=== PATIENT | male | born 1985 | race African-American/Black ===

== ENCOUNTER 2018-12-29 16:29 | Inpatient (IN) | payer BC ==
--- NOTE | 2018-12-29 16:59 | ED ---
Psych HPI - General Chief Complaint: Psychiatric Symptoms Stated Complaint: Mental Health Time Seen by Provider: 12/29/18 16:58 Source: patient, RN notes reviewed, old records reviewed Mode of arrival: ambulatory - History of Present Illness Initial Comments: This is a 33-year-old male presented for psychiatric illness, denies drug rel call abuse. Denies thoughts of suicide or homicide, patient does present for evaluation regarding hallucinations delusions and hearing voices. MD Complaint: suicidal ideation, feels depressed, altered mental status -: unknown Associated Psychiatric Symptoms: racing thoughts, auditory hallucinations, visual hallucinations History of same: Yes Quality: constant, getting worse Improves With: none Worsens With: none Context: not taking psychiatric medications Associated Symptoms: denies other symptoms If Self Harm: admits thoughts of self harm - Related Data Home Medications Medication Instructions Recorded Confirmed No Known Home Medications 12/29/18 12/29/18 Allergies Allergy/AdvReac Type Severity Reaction Status Date / Time Penicillins Allergy Anaphylaxis Verified 12/29/18 17:58 kiwi Allergy Unknown Uncoded 12/29/18 16:35 Review of Systems ROS Statement: Those systems with pertinent positive or pertinent negative responses have been documented in the HPI. ROS Other: All systems not noted in ROS Statement are negative. Past Medical History Past Medical History: Asthma History of Any Multi-Drug Resistant Organisms: None Reported Past Surgical History: Adenoidectomy Past Psychological History: No Psychological Hx Reported Smoking Status: Current every day smoker Past Alcohol Use History: Occasional Past Drug Use History: None Reported General Exam Limitations: no limitations General appearance: alert, in no apparent distress Head exam: Present: atraumatic, normocephalic, normal inspection Eye exam: Present: normal appearance, PERRL, EOMI. Absent: scleral icterus, conjunctival injection, periorbital swelling ENT exam: Present: normal exam, mucous membranes moist Neck exam: Present: normal inspection. Absent: tenderness, meningismus, lymphadenopathy Respiratory exam: Present: normal lung sounds bilaterally. Absent: respiratory distress, wheezes, rales, rhonchi, stridor Cardiovascular Exam: Present: regular rate, normal rhythm, normal heart sounds. Absent: systolic murmur, diastolic murmur, rubs, gallop, clicks GI/Abdominal exam: Present: soft, normal bowel sounds. Absent: distended, tenderness, guarding, rebound, rigid Extremities exam: Present: normal inspection, full ROM, normal capillary refill. Absent: tenderness, pedal edema, joint swelling, calf tenderness Back exam: Present: normal inspection Neurological exam: Present: alert, oriented X3, CN II-XII intact Psychiatric exam: Present: normal affect, normal mood Skin exam: Present: warm, dry, intact, normal color. Absent: rash Course Vital Signs 12/29/18 12/29/18 12/29/18 16:33 21:19 21:20 Temperature 98.7 F Pulse Rate 60 Respiratory 18 Rate Blood Pressure 147/92 Blood Pressure 141/100 133/91 [Left Arm Sitting] O2 Sat by Pulse 99 Oximetry Medical Decision Making - Medical Decision Making 33 male who was seen eval by psychiatry will admit for psychiatric evaluation and treatment Disposition Clinical Impression: Psychosis, Acute psychosis Disposition: TRANSFER TO PSYCH HOSP/UNIT Condition: Fair Is patient prescribed a controlled substance at d/c from ED?: No Referrals: None,Stated [Primary Care Provider] - 1-2 days
[2018-12-29] MEDS ORDERED: MAG HYDROX/AL HYDROX/SIMETH 30 ML CUP PO PRN (22:22)
[2018-12-29] MEDS ORDERED: ACETAMINOPHEN TAB 325 MG TAB PO PRN (22:22)
[2018-12-29] MEDS ORDERED: MAGNESIUM HYDROXIDE 2,400 MG/10 ML CUP PO PRN (22:22)
[2018-12-29] MEDS ORDERED: ZIPRASIDONE 20 MG VIAL IM PRN (22:22)
[2018-12-29] MEDS ORDERED: LORazepam 2 MG/ML INJ IM PRN (22:26)
[2018-12-29 23:21] LABS: Appearance,Urine Clear (Clear); Bilirubin,Urine Negative (Negative); Blood,Urine Negative (Negative); Color,Urine Yellow; Glucose,Urine (UA) Negative (Negative); Ketones,Urine Trace (Negative); Leukocyte Esterase,Urine Negative (Negative); Nitrite,Urine Negative (Negative); PH, Urine 5.5 (5.0-8.0); Protein,Urine Negative (Negative); Specific Gravity,Urine 1.014 (1.001-1.035); Urobilinogen,Urine <2.0 mg/dL (<2.0)
[2018-12-29 23:54] LABS: Amphetamine Screen,Urine Not Detected (NotDetected); Barbiturate Screen,Urine Not Detected (NotDetected); Benzodiazepines Screen,Urine Not Detected (NotDetected); Cocaine Screen,Urine Not Detected (NotDetected); Methadone Screen, Urine Not Detected (NotDetected); Opiate Screen,Urine Not Detected (NotDetected); Oxycodone Screen, Urine Not Detected (NotDetected); Phencyclidine Screen,Urine Not Detected (NotDetected); Tricyclic Antidepressant,Urine Not Detected (NotDetected); Urn Cannabinoid Scrn Detected (NotDetected)
[2018-12-30] MEDS: NICOTINE 14MG/24HR PATCH TRANSDERM SCH ×2 (01:09→09:41)
[2018-12-30] MEDS ORDERED: LORazepam 2 MG/ML INJ IM STA (02:25)
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
[2018-12-30 09:04] LABS: Glucose,Whole Blood 78 mg/dL (75-99)
[2018-12-30 09:12] LABS: Basophils % (A) 0 %; Eosinophils # (A) 0.1 k/uL (0-0.7); Eosinophils % (A) 1 %; HCT 51.1 % (39.0-53.0); HGB 16.3 gm/dL (13.0-17.5); Lymphocytes # (A) 2.2 k/uL (1.0-4.8); Lymphocytes % (A) 31 %; MCH 26.1 pg (25.0-35.0); MCHC 31.9 g/dL (31.0-37.0); MCV 81.8 fL (80.0-100.0); Mean Platelet Volume 6.5; Monocytes # (A) 0.5 k/uL (0-1.0); Monocytes % (A) 7 %; Neutrophils # (A) 4.2 k/uL (1.3-7.7); Neutrophils % (A) 59 %; Platelet Count 230 k/uL (150-450); RBC 6.24 m/uL (4.30-5.90); RDW 13.2 % (11.5-15.5); WBC 7.2 k/uL (3.8-10.6)
[2018-12-30 09:16] LABS: INR 1.1 (<1.2); Prothrombin Time 11.2 sec (9.0-12.0)
[2018-12-30 09:42] LABS: Albumin 4.5 g/dL (3.5-5.0); Bilirubin, Delta 0.2 mg/dL (0.0-0.2); Bilirubin,Unconjugated 0.8 mg/dL (0.0-1.1); Calcium 9.1 mg/dL (8.4-10.2); Magnesium 2.4 mg/dL (1.6-2.3); Potassium 4.8 mmol/L (3.5-5.1); Total Protein 7.8 g/dL (6.3-8.2)
[2018-12-30] MEDS ORDERED: chlorproMAZINE 25 MG/ML 2 ML AMP IM PRN (10:01)
[2018-12-30] MEDS ORDERED: diphenhydrAMINE 50 MG/ML 1 ML VIAL IM PRN (10:03)
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
[2018-12-30 20:52] LABS: Hemoglobin A1C 5.8 % (4.0-6.0)
[2018-12-31] MEDS: LORazepam 1 MG TAB PO PRN (06:59)
[2018-12-31 07:01] VITALS: BP 140/69; PULSE 131; RESP 18; TEMP 97.9
[2018-12-31] MEDS: NICOTINE 14MG/24HR PATCH TRANSDERM SCH (08:52)
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
[2018-12-31 12:12] LABS: Serum Amphetamine Negative; Serum Barbiturates Negative; Serum Benzodiazepine Negative; Serum Cocaine Negative; Serum Methadone Negative; Serum Opiates Negative; Serum Phencyclidine Negative; Serum Propoxyphene Negative; Serum THC (Cannabis) Negative
[2018-12-31] MEDS: VALPROIC ACID ORAL SOLN 250 MG/5 ML CUP PO SCH (18:16)
[2019-01-01] MEDS: LORazepam 1 MG TAB PO PRN ×2 (06:01→17:22)
[2019-01-01] MEDS: VALPROIC ACID ORAL SOLN 250 MG/5 ML CUP PO SCH ×2 (09:19→17:20)
[2019-01-01] MEDS: NICOTINE 14MG/24HR PATCH TRANSDERM SCH (09:21)
--- NOTE | 2019-01-01 17:17 | P.PN ---
Subjective Progress Note Date: 01/01/19 Principal diagnosis: Brief Psychotic disorder Found him in much calmer mood. Failrly interactive. Has no agitation or aggressive behavior. Reports not sleeping as good.. He feels safe on the unit. Working on his coping skills.. MSE : Alert, awake, interactive. Poor eye contact. Speech few words. Mood dysphoric and anxious. Denies having any auditory and visual hallucinations. Has no suicidal ideation. Insight and judgment impaired. Plan : Will continue to adjust medications accordingly Objective - Vital Signs Vital signs: Vital Signs Temp 97.9 F 12/31/18 07:00 Pulse 131 H 12/31/18 07:00 Resp 18 12/31/18 07:00 BP 140/69 12/31/18 07:00 Pulse Ox 96 12/30/18 03:37 - Labs CBC & Chem 7: 12/30/18 08:15 12/30/18 08:15
[2019-01-02] MEDS: NICOTINE 14MG/24HR PATCH TRANSDERM SCH (08:31)
[2019-01-02] MEDS: VALPROIC ACID ORAL SOLN 250 MG/5 ML CUP PO SCH ×2 (08:31→16:45)
--- NOTE | 2019-01-02 13:10 | P.PN ---
Subjective Progress Note Date: 01/02/19 Principal diagnosis: Brief Psychotic disorder Found him in much calmer mood. Fairly interactive. Has no agitation or aggressive behavior. Reports not sleeping as good.. He feels safe on the unit. Working on his coping skills.. MSE : Alert, awake, interactive. Poor eye contact. Speech few words. Mood dysphoric and anxious. Denies having any auditory and visual hallucinations. Has no suicidal ideation. Insight and judgment impaired. Plan : Will continue to adjust medications accordingly Objective - Vital Signs Vital signs: Vital Signs Temp 97.9 F 12/31/18 07:00 Pulse 131 H 12/31/18 07:00 Resp 18 12/31/18 07:00 BP 140/69 12/31/18 07:00 Pulse Ox 96 12/30/18 03:37 - Labs CBC & Chem 7: 12/30/18 08:15 12/30/18 08:15
[2019-01-02] MEDS: LORazepam 1 MG TAB PO PRN (21:33)
[2019-01-03] MEDS: VALPROIC ACID ORAL SOLN 250 MG/5 ML CUP PO SCH (07:54)
[2019-01-03] MEDS: NICOTINE 14MG/24HR PATCH TRANSDERM SCH (07:54)
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
[2019-01-03] MEDS ORDERED: DIVALPROEX ER 500 MG TAB.ER.24H PO SCH (21:00)
[2019-01-04] MEDS: NICOTINE 14MG/24HR PATCH TRANSDERM SCH (08:32)
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
--- NOTE | 2019-01-04 12:31 | XR ---
EXAMINATION TYPE: XR chest 1V DATE OF EXAM: 01/04/2019 COMPARISON: NONE HISTORY: Cough TECHNIQUE: Single frontal view of the chest is obtained. FINDINGS: There is no focal air space opacity, pleural effusion, or pneumothorax seen. The cardiac silhouette size is within normal limits. The osseous structures are intact. IMPRESSION: No acute process.
--- NOTE | 2019-01-04 12:39 | P.PN ---
Subjective Progress Note Date: 01/04/19 Patient complaining of 2 days of productive cough with yellow sputum, reports a history of asthma and reports mild wheezes, denies any shortness of breath or difficulty breathing. Afebrile Objective - Vital Signs Vital signs: Vital Signs Temp 97.9 F 12/31/18 07:00 Pulse 131 H 12/31/18 07:00 Resp 18 12/31/18 07:00 BP 140/69 12/31/18 07:00 Pulse Ox 96 12/30/18 03:37 - Exam Constitutional: No acute distress, conversant, pleasant Eyes: Anicteric sclerae, moist conjunctiva, no lid-lag, PERRLA ENMT: NC/AT,Oropharynx clear, no erythema, exudates Neck:Supple, FROM, no masses, or JVD, No carotid bruits; No thyromegaly Lungs: Clear to auscultation, diminished in the bases Cardiovascular: Heart regular in rate and rhythm, No murmurs, gallops, or rubs no peripheral edema Abdominal: Soft Nontender, nom distended, no guarding, no rebound or rigidity, Normoactive bowel sounds No hepatomegaly, No splenomegaly, No palpable mass No abdominal wall hernia noted Skin: Normal temperature, tone, texture, turgor, No induration No subcutaneous nodules, No rash, lesions, No ulcers Extremities:No digital cyanosis No clubbing, Pedal pulses intact and symmetrical Radial pulses intact and symmetrical Normal gait and station, No calf tenderness Neuro: Muscles Strength 5/5 in all 4 extremities, Sensation to light touch grossly present throughout, Cranial nerves II-XII grossly intact. No focal sensory deficits - Labs CBC & Chem 7: 12/30/18 08:15 12/30/18 08:15 Assessment and Plan (1) Cough Narrative/Plan: * Chest x-ray ordered negative for any acute process * Good breath sounds * Likely viral versus postnasal drip Current Visit: Yes Status: Acute Code(s): R05 - COUGH SNOMED Code(s): 89804757 (2) Asthma Narrative/Plan: * Patient not in any acute exacerbation * Reports that he does not have a rescue inhaler * We'll send a prescription to his pharmacy for albuterol Current Visit: Yes Status: Acute Code(s): J45.909 - UNSPECIFIED ASTHMA, UNCOMPLICATED SNOMED Code(s): 576271767
== END 2019-01-04 14:03 | disposition home or self-care (01) | DRG 885 ==
LOC: EC 16:29 → 3MHU 21:52
PROVIDERS: ADMIT Psychiatry & Neurology Psychiatry; ATTEND Psychiatry & Neurology Psychiatry
DX: F32.3 Major depressive disorder, single episode, severe with psychotic features (principal); R45.851 Suicidal ideations; F17.200 Nicotine dependence, unspecified, uncomplicated; J45.909 Unspecified asthma, uncomplicated; R45.850 Homicidal ideations; R05 Cough; R45.5 Hostility; Z78.1 Physical restraint status; Z88.0 Allergy status to penicillin; Z91.018 Allergy to other foods
CPT/HCPCS: 71045; 80053; 80061; 80306; 80307; 81003; 82075; 82248; 83036; 83735; 84443; 85025; 85610; 99285

== ENCOUNTER → 2019-10-18 | Outpatient (CLI) | payer BC ==
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
== END | disposition home or self-care (01) ==
LOC: SLEEP 14:26
PROVIDERS: ATTEND Internal Medicine Critical Care Medicine
DX: G47.19 Other hypersomnia (principal); E66.9 Obesity, unspecified; Z68.33 Body mass index [BMI] 33.0-33.9, adult
CPT/HCPCS: 99211

== ENCOUNTER 2021-03-06 16:39 | Emergency (ER) | payer BC ==
--- NOTE | 2021-03-06 16:49 | ED ---
Psych HPI - General Stated Complaint: Mental Health Time Seen by Provider: 03/06/21 16:48 Source: patient, RN notes reviewed Mode of arrival: ambulatory Limitations: no limitations - History of Present Illness Initial Comments: This is a 35-year-old male presents emergency Department chief complaint of wanting psychiatric treatment. Patient states he has history of bipolar diso rder. Patient states she's having severe stress and states that he is afraid that he may go down a bad road. He states that he's had some issues in the past. Denies being suicidal or homicidal. Patient does use marijuana, occasional alcohol use. No physical complaints. - Related Data Home Medications Medication Instructions Recorded Confirmed No Known Home Medications 03/06/21 03/06/21 Allergies Allergy/AdvReac Type Severity Reaction Status Date / Time Penicillins Allergy Anaphylaxis Verified 03/06/21 18:04 kiwi Allergy Unknown Uncoded 01/01/19 03:24 Review of Systems ROS Statement: Those systems with pertinent positive or pertinent negative responses have been documented in the HPI. ROS Other: All systems not noted in ROS Statement are negative. Past Medical History Past Medical History: Asthma History of Any Multi-Drug Resistant Organisms: None Reported Past Surgical History: Adenoidectomy Past Psychological History: No Psychological Hx Reported Past Alcohol Use History: Occasional Past Drug Use History: None Reported General Exam General appearance: alert, in no apparent distress Head exam: Present: atraumatic, normocephalic, normal inspection Eye exam: Present: normal appearance, PERRL, EOMI. Absent: scleral icterus, conjunctival injection, periorbital swelling ENT exam: Present: normal exam, normal oropharynx, mucous membranes moist Neck exam: Present: normal inspection, meningismus, full ROM. Absent: tenderness, lymphadenopathy Respiratory exam: Present: normal lung sounds bilaterally. Absent: respiratory distress, wheezes, rales, rhonchi, stridor Cardiovascular Exam: Present: regular rate, normal rhythm, normal heart sounds. Absent: systolic murmur, diastolic murmur, rubs, gallop, clicks Neurological exam: Present: alert Psychiatric exam: Present: flat affect Skin exam: Present: warm, dry, intact, normal color. Absent: rash Course Vital Signs 03/06/21 16:46 Temperature 97.9 F Pulse Rate 101 H Respiratory 19 Rate Blood Pressure 142/82 O2 Sat by Pulse 98 Oximetry Medical Decision Making - Medical Decision Making Patient evaluated by EPS patient is suicidal. Patient was discharged per psychiatry recommendation. - Lab Data Lab Results 03/06/21 Range/Units 17:37 Urine Opiates Screen Not Detected (NotDetected) Ur Oxycodone Screen Not Detected (NotDetected) Urine Methadone Screen Not Detected (NotDetected) Ur Propoxyphene Screen Not Detected (NotDetected) Ur Barbiturates Screen Not Detected (NotDetected) U Tricyclic Antidepress Not Detected (NotDetected) Ur Phencyclidine Scrn Not Detected (NotDetected) Ur Amphetamines Screen Not Detected (NotDetected) U Methamphetamines Scrn Not Detected (NotDetected) U Benzodiazepines Scrn Not Detected (NotDetected) Urine Cocaine Screen Not Detected (NotDetected) U Marijuana (THC) Screen Detected H (NotDetected) Disposition Clinical Impression: Acute anxiety Disposition: HOME SELF-CARE Condition: Stable Instructions (If sedation given, give patient instructions): Generalized Anxiety Disorder (ED) Additional Instructions: Please return to the Emergency Department if symptoms worsen or any other concerns. Is patient prescribed a controlled substance at d/c from ED?: No Referrals: Bernabe Turner MD [Primary Care Provider] - 1-2 days Time of Disposition: 19:31
[2021-03-06 18:14] LABS: Amphetamine Screen,Urine Not Detected (NotDetected); Barbiturate Screen,Urine Not Detected (NotDetected); Benzodiazepines Screen,Urine Not Detected (NotDetected); Cocaine Screen,Urine Not Detected (NotDetected); Methadone Screen, Urine Not Detected (NotDetected); Opiate Screen,Urine Not Detected (NotDetected); Oxycodone Screen, Urine Not Detected (NotDetected); Phencyclidine Screen,Urine Not Detected (NotDetected); Tricyclic Antidepressant,Urine Not Detected (NotDetected); Urn Cannabinoid Scrn Detected (NotDetected)
[2021-03-06 19:56] VITALS: BP 129/58; PULSE 56; RESP 18; TEMP 98.1
== END 2021-03-06 19:56 | disposition home or self-care (01) ==
LOC: EC 16:39
DX: F41.9 Anxiety disorder, unspecified (principal); F31.9 Bipolar disorder, unspecified; J45.909 Unspecified asthma, uncomplicated; F12.90 Cannabis use, unspecified, uncomplicated; Z88.0 Allergy status to penicillin
CPT/HCPCS: 80306; 82075; 99284